=== PATIENT | male | born 1965 | race Hispanic/Latino ===

== ENCOUNTER → 2020-04-02 | Outpatient (CLI) | payer BC ==
[~2020-04-02] MED LIST: BAYER ASPIRIN325 M1 PO; DIOVAN80 MG PO; IOPAMIDOL 300MG/ML 100 ML INFUS..BTL IV ONE; MELOXICAM7.5 MG; NASONEX17 GM; NIASPAN1000 MG; NORCO 7.5-3251 EACH PO; Z.0.FLOVENT DISKUS50 INH; Z.0.RAMIPRIL5 MG PO; Z.0.TOPROL XL25 MG PO; [UNRECOGNIZED DRUG - OTHER] PO
== END ==
LOC: DX 11:00
PROVIDERS: ATTEND Urology
DX: N35.919 Unspecified urethral stricture, male, unspecified site (principal)
CPT/HCPCS: 74450; Q9967